=== PATIENT | male | born 1960 | race African-American/Black ===

== ENCOUNTER 2017-09-17 13:43 | Emergency (ER) | payer SELFPAY ==
[~2017-09-17] VITALS: Ht 185.4 cm; Wt 77.0 kg
[2017-09-17] MEDS ORDERED: SODIUM CHLORIDE 0.9% 1,000 ML IV ONE ×2 (14:19→17:55)
[2017-09-17 16:33] LABS: CHLORIDE 111 mEq/L (98-107); HEMATOCRIT 44.3 % (42.0-52.0); HEMOGLOBIN 14.9 g/dL (14.0-18.0); MEAN CORPUSCULAR HEMOGLOBIN 29.9 pg (28.0-32.0); MEAN CORPUSCULAR VOLUME 88.8 fL (80.0-94.0); PLATELET 166 x1000/uL (130-400); RED BLOOD CELL COUNT 4.99 mill/uL (4.7-6.1)
[2017-09-17 16:40] LABS: CARBON DIOXIDE 23 mEq/L (21-32)
[2017-09-17 17:30] LABS: *AMPHETAMINES SCREEN URINE NEGATIVE (NEGATIVE); *BARBITURATES SCREEN URINE NEGATIVE (NEGATIVE); *BENZODIAZEPINES SCREEN URINE NEGATIVE (NEGATIVE); *COCAINE SCREEN URINE NEGATIVE (NEGATIVE); CANNABINOID URINE SCREEN NEGATIVE (NEGATIVE); METHADONE URINE SCREEN NEGATIVE (NEGATIVE); OPIATES URINE SCREEN NEGATIVE (NEGATIVE); PHENCYCLIDINE URINE SCREEN NEGATIVE (NEGATIVE)
[2017-09-17] MEDS ORDERED: ACETAMINOPHEN 325MG TABLET PO ONE (18:00)
[2017-09-17 23:08] VITALS: BP 122/76
== END 2017-09-17 23:13 | disposition home or self-care (01) ==
LOC: ER 13:51
DX: S60.221A Contusion of right hand, initial encounter (principal); F10.129 Alcohol abuse with intoxication, unspecified; M25.552 Pain in left hip; M25.551 Pain in right hip; F17.200 Nicotine dependence, unspecified, uncomplicated; V87.8XXA Person injured in other specified noncollision transport accidents involving motor vehicle (traffic), initial encounter; Y93.55 Activity, bike riding; Y92.89 Other specified places as the place of occurrence of the external cause; Y99.8 Other external cause status
CPT/HCPCS: 36415; 70450; 73130; 73521; 80048; 80305; 85027; 96360; 96361; 99285; G0482; J7030

== ENCOUNTER 2020-02-28 15:13 | Emergency (ER) | payer MEDICAID ==
[~2020-02-28] VITALS: Ht 182.9 cm; Wt 110.0 kg
[2020-02-28] MEDS ORDERED: SODIUM CHLORIDE 0.9% 1,000 ML IV ONE (15:28)
[2020-02-28 15:47] LABS: HEMOGLOBIN. 15.3 g/dL (14.0-18.0); MEAN CORPUSCULAR VOLUME 91.4 fL (80.0-94.0); MEAN PLATELET VOLUME 8.6 fl (7.4-10.4); PLATELET 99 x1000/uL (130-400); RED BLOOD CELL COUNT 4.92 mill/uL (4.7-6.1); RED CELL DISTRIBUTION WIDTH 15.1 % (11.6-14.6)
[2020-02-28 15:53] LABS: CHLORIDE 107 mEq/L (98-107)
[2020-02-28 15:54] LABS: INR 1.2; PROTHROMBIN TIME 12.8 sec (9.6-11.0)
[2020-02-28 15:57] LABS: ETHANOL BLOOD 157 mg/dL
[2020-02-28 16:15] LABS: PLATELET ESTIMATE DECREASED
[2020-02-28] MEDS ORDERED: POTASSIUM CHLORIDE 20MEQ TABLET SR PO ONE (16:30)
[2020-02-28 16:50] VITALS: BP 122/75
== END 2020-02-28 16:51 | disposition home or self-care (01) ==
LOC: ER 15:13
DX: R53.1 Weakness (principal); E87.6 Hypokalemia; Z59.0 Homelessness
CPT/HCPCS: 36415; 80053; 80320; 85025; 85610; 93005; 99284; J7030; G0480

== ENCOUNTER 2020-11-29 13:37 | Emergency (ER) | payer OTHER ==
[~2020-11-29] VITALS: Ht 185.4 cm; Wt 75.0 kg
[2020-11-29] MEDS ORDERED: ACETAMINOPHEN 325MG TABLET PO ONE (14:45)
[2020-11-29] MEDS ORDERED: IBUP-2028 MT (16:18)
[2020-11-29 16:31] VITALS: BP 122/77
== END 2020-11-29 16:33 | disposition home or self-care (01) ==
LOC: ER 13:37
DX: S00.83XA Contusion of other part of head, initial encounter (principal); S50.811A Abrasion of right forearm, initial encounter; F10.129 Alcohol abuse with intoxication, unspecified; Y90.9 Presence of alcohol in blood, level not specified; Y08.89XA Assault by other specified means, initial encounter; Y93.89 Activity, other specified; R03.0 Elevated blood-pressure reading, without diagnosis of hypertension; Y92.89 Other specified places as the place of occurrence of the external cause
CPT/HCPCS: 70486; 73090; 93005; 99285

== ENCOUNTER 2022-08-14 18:30 | Emergency (ER) | payer MEDICAID, OTHER ==
[~2022-08-14] VITALS: Ht 182.9 cm; Wt 70.0 kg
[~2022-08-14 18:30] MED LIST: IBUP-2028 MT
[2022-08-14 18:38] VITALS: BP 98/56
== END 2022-08-14 22:26 | disposition left against medical advice (07) ==
LOC: ER 19:30
DX: K29.21 Alcoholic gastritis with bleeding (principal); I95.9 Hypotension, unspecified; R00.0 Tachycardia, unspecified; F10.20 Alcohol dependence, uncomplicated; K70.9 Alcoholic liver disease, unspecified; Y90.9 Presence of alcohol in blood, level not specified
CPT/HCPCS: 99283

== ENCOUNTER 2022-08-14 23:20 | Inpatient (IN) | payer OTHER, MEDICAID ==
[~2022-08-14] VITALS: Ht 182.9 cm; Wt 74.4 kg
[2022-08-14] MEDS ORDERED: PANTOPRAZOLE SODIUM 40 MG/VIAL IV STA (23:39)
[2022-08-14] MEDS ORDERED: ONDANSETRON HCL 4MG/2ML INJ IV STA (23:39)
[2022-08-14] MEDS ORDERED: SODIUM CHLORIDE 0.9% 1,000 ML IV ONE (23:45)
[2022-08-15 00:29] LABS: BASOPHILS % 0.1 % (0.0-2.0); EOSINOPHILS % 0.1 % (0.0-5.0); HEMATOCRIT. 37.3 % (42.0-52.0); HEMOGLOBIN. 11.6 g/dL (14.0-18.0); LYMPHOCYTES % 13.2 % (20.0-50.0); MEAN CORPUSCULAR HEMOGLOBIN 31.1 pg (28.0-32.0); MEAN CORPUSCULAR VOLUME 99.7 fL (80.0-94.0); MONOCYTES % 9.8 % (2.0-8.0); NEUTROPHILS % 76.8 % (40.0-76.0); PLATELET 173 x1000/uL (130-400); RED BLOOD CELL COUNT 3.74 mill/uL (4.7-6.1); RED CELL DISTRIBUTION WIDTH 14.7 % (11.6-14.6)
[2022-08-15 00:38] LABS: CHLORIDE 102 mEq/L (98-107)
[2022-08-15 00:47] LABS: ETHANOL BLOOD < 10 mg/dL
[2022-08-15 02:00] LABS: INR 1.5; PROTHROMBIN TIME 15.3 sec (9.6-11.0)
[2022-08-15 04:36] LABS: CLARITY URINE CLEAR (CLEAR); COLOR URINE YELLOW (YELLOW); KETONES URINE NEGATIVE (NEGATIVE); LEUKOCYTE ESTERASE URINE NEGATIVE (NEGATIVE); NITRITE URINE NEGATIVE (NEGATIVE); OCCULT BLOOD URINE 3+ (NEGATIVE); PH URINE 5.5 (4.5-8.0); PROTEIN URINE NEGATIVE (NEGATIVE); SPECIFIC GRAVITY URINE 1.019 (1.005-1.030)
[2022-08-15 05:25] LABS: *AMPHETAMINES SCREEN URINE NEGATIVE (NEGATIVE); *BARBITURATES SCREEN URINE NEGATIVE (NEGATIVE); *BENZODIAZEPINES SCREEN URINE NEGATIVE (NEGATIVE); *COCAINE SCREEN URINE NEGATIVE (NEGATIVE); CANNABINOID URINE SCREEN NEGATIVE (NEGATIVE); METHADONE URINE SCREEN NEGATIVE (NEGATIVE); OPIATES URINE SCREEN NEGATIVE (NEGATIVE); PHENCYCLIDINE URINE SCREEN NEGATIVE (NEGATIVE)
[2022-08-15] MEDS ORDERED: ACETAMINOPHEN 325MG TABLET PO PRN (09:45)
[2022-08-15] MEDS ORDERED: ONDANSETRON HCL 4MG/2ML INJ IV PRN (09:45)
[2022-08-15] MEDS ORDERED: POTASSIUM CHLORIDE 20MEQ TABLET SR PO NR (09:45)
[2022-08-15] MEDS: DEXT 5%/0.45% NACL 1000ML 1,000 ML IV SCH ×2 (10:05→23:20)
[2022-08-15] MEDS: PANTOPRAZOLE SODIUM 40 MG/VIAL IV SCH ×2 (10:06→20:23)
[2022-08-15 10:50] VITALS: BP 105/72
[2022-08-15 11:14] VITALS: BP 105/72
[2022-08-15 12:00] VITALS: BP 96/48
[2022-08-15 16:00] VITALS: BP 106/66
[2022-08-15] MEDS ORDERED: OCTREOTIDE 1,000 MCG in SODIUM CHLORIDE 0.9% 98 ML IV ONE (18:30)
[2022-08-15 20:00] VITALS: BP 116/66
[2022-08-15 21:51] LABS: BASOPHILS % 0.3 % (0.0-2.0); EOSINOPHILS % 0.5 % (0.0-5.0); HEMOGLOBIN. 9.8 g/dL (14.0-18.0); LYMPHOCYTES % 27.5 % (20.0-50.0); MEAN CORPUSCULAR VOLUME 91.9 fL (80.0-94.0); MEAN PLATELET VOLUME 9.8 fl (7.4-10.4); MONOCYTES % 10.1 % (2.0-8.0); NEUTROPHILS % 61.6 % (40.0-76.0); PLATELET 82 x1000/uL (130-400); RED BLOOD CELL COUNT 3.15 mill/uL (4.7-6.1); RED CELL DISTRIBUTION WIDTH 15.4 % (11.6-14.6)
[2022-08-15 22:11] LABS: CHLORIDE 111 mEq/L (98-107)
[2022-08-16] VITALS (7 sets, daily range): BP systolic 111–125; BP diastolic 68–80
[2022-08-16] MEDS: DEXT 5%/0.45% NACL 1000ML 1,000 ML IV SCH (05:13)
[2022-08-16 07:31] LABS: BASOPHILS % 0.6 % (0.0-2.0); EOSINOPHILS % 0.5 % (0.0-5.0); HEMATOCRIT. 29.7 % (42.0-52.0); LYMPHOCYTES % 29.4 % (20.0-50.0); MEAN CORPUSCULAR VOLUME 91.7 fL (80.0-94.0); MEAN PLATELET VOLUME 9.6 fl (7.4-10.4); MONOCYTES % 9.7 % (2.0-8.0); NEUTROPHILS % 59.8 % (40.0-76.0); PLATELET 78 x1000/uL (130-400); RED BLOOD CELL COUNT 3.24 mill/uL (4.7-6.1); RED CELL DISTRIBUTION WIDTH 15.2 % (11.6-14.6)
[2022-08-16 07:45] LABS: INR 1.3; PROTHROMBIN TIME 13.5 sec (9.6-11.0)
[2022-08-16 08:59] LABS: CHLORIDE 112 mEq/L (98-107)
[2022-08-16] MEDS: PANTOPRAZOLE SODIUM 40 MG/VIAL IV SCH ×2 (09:06→20:49)
[2022-08-16 09:13] LABS: TOTAL IRON BINDING CAPACITY 220 ug/dL (250-450)
[2022-08-16 10:36] LABS: VITAMIN B12 SERUM 440 pg/mL (211-911)
[2022-08-16] MEDS ORDERED: PROPOFOL 200MG/20ML VIAL IV ONE (11:43)
[2022-08-16] MEDS ORDERED: EPHEDRINE SULFATE 50MG/ML VIAL ONE (11:43)
[2022-08-16] MEDS ORDERED: LIDOCAINE HCL 1% 20ML VIAL (Pyxis) INJ ONE (11:43)
[2022-08-16] MEDS ORDERED: PHENYLEPHRINE HCL 10 MG/ML 1ML (IV VIAL) IV ONE (11:44)
[2022-08-16] MEDS ORDERED: MIDAZOLAM HCL 2 MG/2 ML VIAL ONE (11:48)
[2022-08-16 14:41] LABS: FERRITIN 175 ng/mL (22-322)
[2022-08-16 14:52] LABS: HEPATITIS B SURFACE ANTIGEN NEGATIVE
[2022-08-17] VITALS: BP 124/82
[2022-08-17] MEDS: DEXT 5%/0.45% NACL 1000ML 1,000 ML IV SCH (02:00)
[2022-08-17 04:00] VITALS: BP 123/78
[2022-08-17 08:00] VITALS: BP 103/66
[2022-08-17 08:28] LABS: BASOPHILS % 0.4 % (0.0-2.0); EOSINOPHILS % 0.4 % (0.0-5.0); HEMATOCRIT. 29.3 % (42.0-52.0); HEMOGLOBIN. 9.9 g/dL (14.0-18.0); LYMPHOCYTES % 19.2 % (20.0-50.0); MEAN CORPUSCULAR HEMOGLOBIN 31.2 pg (28.0-32.0); MEAN CORPUSCULAR VOLUME 92.2 fL (80.0-94.0); MEAN PLATELET VOLUME 9.4 fl (7.4-10.4); MONOCYTES % 8.9 % (2.0-8.0); NEUTROPHILS % 71.1 % (40.0-76.0); PLATELET 81 x1000/uL (130-400); RED BLOOD CELL COUNT 3.18 mill/uL (4.7-6.1); RED CELL DISTRIBUTION WIDTH 15.1 % (11.6-14.6)
[2022-08-17] MEDS: PANTOPRAZOLE SODIUM 40 MG/VIAL IV SCH (08:51)
[2022-08-17] MEDS ORDERED: [UNRECOGNIZED DRUG - OTHER] PO SCH (09:00)
[2022-08-17 09:03] LABS: CHLORIDE 111 mEq/L (98-107)
[2022-08-17] MEDS ORDERED: COR3 MT (10:31)
[2022-08-17] MEDS ORDERED: PANT40TA51 MT (10:31)
[2022-08-17 11:02] VITALS: BP 106/66
[2022-08-17 12:00] VITALS: BP 126/74
== END 2022-08-17 16:02 | disposition home or self-care (01) | DRG 432 ==
LOC: ER 23:25 → EDBEDREQSVC 08-15 01:18 → EDBEDREQTM 08-15 01:18 → EDBEDREQ 08-15 01:18 → EDBEDREQSVC 08-15 09:45 → ENRESERV 08-15 10:09 → 6WST 08-15 12:05
PROVIDERS: ADMIT Internal Medicine; ATTEND Internal Medicine
PROC: 30233K1 Transfusion of Nonautologous Frozen Plasma into Peripheral Vein, Percutaneous Approach (ICD-10-PCS; 2022-08-15)
PROC: 30233N1 Transfusion of Nonautologous Red Blood Cells into Peripheral Vein, Percutaneous Approach (ICD-10-PCS; 2022-08-15)
PROC: 0DB78ZX Excision of Stomach, Pylorus, Via Natural or Artificial Opening Endoscopic, Diagnostic (ICD-10-PCS; principal; 2022-08-16)
DX: K74.60 Unspecified cirrhosis of liver (principal); E43 Unspecified severe protein-calorie malnutrition; R57.8 Other shock; I85.11 Secondary esophageal varices with bleeding; D68.9 Coagulation defect, unspecified; K76.6 Portal hypertension; D64.9 Anemia, unspecified; E87.6 Hypokalemia; D72.829 Elevated white blood cell count, unspecified; Z20.822 Contact with and (suspected) exposure to COVID-19; K31.89 Other diseases of stomach and duodenum; K80.20 Calculus of gallbladder without cholecystitis without obstruction; G62.9 Polyneuropathy, unspecified; R16.1 Splenomegaly, not elsewhere classified; F41.9 Anxiety disorder, unspecified; Z68.22 Body mass index [BMI] 22.0-22.9, adult
CPT/HCPCS: 36415; 71045; 74176; 80048; 80053; 80305; 80320; 81003; 82607; 82728; 82746; 83540; 83550; 83605; 83880; 84484; 85025; 86705; 86709; 86803; 86850; 86900; 86920; 86927; 87340; 87426; 88305; 93005; 99291; C9113; J2250; J2354; J2370; J2405; J2704; J3490; J7030; J7050; P9016; P9017; G0480

== ENCOUNTER 2025-08-09 00:58 | Inpatient (IN) | payer OTHER ==
[~2025-08-09] VITALS: Ht 177.8 cm; Wt 84.8 kg
[2025-08-09] VITALS (77 sets, daily range): BP systolic 76–141; BP diastolic 53–110; PULSE 17–81; RESP 13–24; TEMP 36–36.8; O2SAT 96–100
[~2025-08-09 00:58] MED LIST changes: +ASPI-1160 PO; +ATOR-388 MT; +BICT1TAB PO; +CHOL-36 PO; -IBUP-2028 MT; +PANT40TA51 MT
[2025-08-09] MEDS: MORPHINE SULFATE 4 MG/ML INJ (FOR IV/IM USE) IV ONE (02:15)
[2025-08-09] MEDS: ONDANSETRON HCL 4MG/2ML INJ IV ONE (02:15)
[2025-08-09] MEDS: PANTOPRAZOLE SODIUM 40 MG/VIAL IV ONE (02:15)
[2025-08-09] MEDS: SODIUM CHLORIDE 0.9% 1,000 ML IV ONE (02:15)
[2025-08-09] MEDS: CALCIUM CHLORIDE 1,000 MG in SODIUM CHLORIDE 0.9% 100 ML IV ONE (02:30)
[2025-08-09] MEDS: ETOMIDATE 2MG/ML 10ML VIAL IV ONE (02:40)
[2025-08-09] MEDS: ROCURONIUM BROMIDE 10MG/ML VIAL 5ML IV ONE (02:40)
[2025-08-09] MEDS ORDERED: FENTANYL 2500MCG/250ML PMX 250 ML IV ONE ×2 (02:45→14:45)
[2025-08-09] MEDS ORDERED: MIDAZOLAM 100MG/100ML PMX 100 ML IV PRN (02:45)
[2025-08-09] MEDS: PROPOFOL 10MG/ML 100ML 100 ML IV SCH (03:00)
[2025-08-09] MEDS ORDERED: MIDAZOLAM 100MG/100ML PMX 100 ML IV SCH (03:00)
[2025-08-09] MEDS ORDERED: OCTREOTIDE 1,000 MCG in SODIUM CHLORIDE 0.9% 98 ML IV ONE (03:00)
[2025-08-09] MEDS ORDERED: FENTANYL 2500MCG/250ML PMX 250 ML IV SCH (03:00)
[2025-08-09] MEDS: PROPOFOL 10MG/ML 100ML 100 ML IV PRN ×2 (03:04→07:52)
[2025-08-09 03:17] LABS: HEMATOCRIT. 33.7 % (42.0-52.0); HEMOGLOBIN. 10.6 g/dL (14.0-18.0); RED BLOOD CELL COUNT 4.14 mill/uL (4.7-6.1); RED CELL DISTRIBUTION WIDTH 27.5 % (11.6-14.6)
[2025-08-09 03:19] LABS: CREATININE 0.8 mg/dL (0.6-1.3); INR 1.6; UREA NITROGEN BLOOD 9 mg/dL (9-23)
[2025-08-09 03:20] LABS: ETHANOL BLOOD < 10 mg/dL (<10)
[2025-08-09 03:21] LABS: ASPARTATE AMINOTRANSFERASE 97 IU/L (<34); BILIRUBIN DIRECT 0.9 mg/dL (<=3.0)
[2025-08-09 03:22] LABS: BILIRUBIN TOTAL 1.7 mg/dL (0.1-1.0); PROTEIN TOTAL 6.9 g/dL (6.0-8.3)
[2025-08-09] MEDS: MIDAZOLAM 100MG/100ML PMX 100 ML IV PRN (03:56)
[2025-08-09] MEDS: OCTREOTIDE 1,000 MCG in SODIUM CHLORIDE 0.9% 98 ML IV NR (03:56)
[2025-08-09] MEDS: OCTREOTIDE ACETATE 50 MCG/ML 1ML IV ONE (03:56)
[2025-08-09] MEDS: CEFTRIAXONE 1GM/50ML 50 ML IV ONE (04:07)
[2025-08-09] MEDS: TRANEXAMIC ACID 1000MG PREMIX 100 ML IV STA (04:11)
[2025-08-09] MEDS ORDERED: FENTANYL CITRATE/PF 2,500 MCG in SODIUM CHLORIDE 0.9% 200 ML IV PRN ×2 (04:15→06:00)
[2025-08-09] MEDS ORDERED: LORAZEPAM 2MG/ML UD SYRINGE IV PRN (04:15)
[2025-08-09] MEDS ORDERED: LABETALOL 5MG/ML 4ML INJ IV PRN (04:30)
[2025-08-09 05:01] LABS: MEAN PLATELET VOLUME 9.3 fl (7.4-10.4); PLATELET 91 x1000/uL (130-400)
[2025-08-09 05:17] LABS: EOSINOPHILS % MANUAL 1.0 % (0.0-5.0); LYMPHOCYTES % MANUAL 29.0 % (20.0-50.0); MONOCYTES % MANUAL 12.0 % (2.0-8.0); NEUTROPHILS % MANUAL 58.0 % (45.0-75.0); PLATELET ESTIMATE DECREASED
[2025-08-09] MEDS ORDERED: ONDANSETRON HCL 4MG/2ML INJ IV PRN (05:30)
[2025-08-09 06:22] LABS: BG DEOXYHEMOGLOBIN 0.8 % (0.0-5.0)
[2025-08-09] MEDS: NOREPINEPHRINE 8MG/250ML PMX 250 ML IV PRN (06:47)
[2025-08-09] MEDS ORDERED: PANTOPRAZOLE 80 MG in SODIUM CHLORIDE 0.9% 100 ML IV SCH (07:00)
[2025-08-09] MEDS ORDERED: IOHEXOL-300 100 ML BOTTLE ONE (07:24)
[2025-08-09] MEDS: PANTOPRAZOLE 80 MG in SODIUM CHLORIDE 0.9% 100 ML IV SCH (08:42)
[2025-08-09] MEDS: MVI, ADULT NO.1 10 ML, THIAMINE HCL 100 MG, FOLIC ACID 1 MG in SODIUM CHLORIDE 0.9% 1,0... IV SCH (08:43)
[2025-08-09] MEDS ORDERED: MVI, ADULT NO.1 10 ML, THIAMINE HCL 100 MG, FOLIC ACID 1 MG in SODIUM CHLORIDE 0.9% 1,0... IV SCH (09:00)
[2025-08-09] MEDS ORDERED: CEFTRIAXONE 1GM/50ML 50 ML IV SCH (09:00)
[2025-08-09] MEDS ORDERED: PANTOPRAZOLE SODIUM 40 MG/VIAL IV SCH (09:00)
[2025-08-09 09:23] LABS: BG BASE EXCESS -3.9 mmol/L (-2.0-3.0); BG CARBOXYHEMOGLOBIN 1.0 % (0.5-1.5); BG DEOXYHEMOGLOBIN 0.4 % (0.0-5.0); BG FRACTION INSPIRED OXYGEN 40; BG HCO3 ACT 20.0 mmol/L (21.0-28.0); BG METHEMOGLOBIN 0.3 % (0.5-1.5); BG OXYGEN SATURATION 99.6 % (94.0-98.0); BG OXYHEMOGLOBIN 98.3 % (94.0-98.0); BG PCO2 33.1 mmHg (35.0-48.0); BG PEEP (cmH2O) 5.0 cmH2O; BG PH 7.400 (7.350-7.450); BG PO2 171.1 mmHg (83.0-108.0); BG SAMPLE SITE LEFT RADIAL; BG TIDAL VOLUME(mL) 450.0 mL; BG TOTAL HEMOGLOBIN 12.5 g/dL (13.5-17.5); BG TOTAL RESPIRATORY RATE 17 b/min; BG VENT RATE 16.0 set
[2025-08-09 10:18] LABS: BASOPHILS % 0.9 % (0.0-2.0); EOSINOPHILS % 0.3 % (0.0-5.0); HEMATOCRIT. 36.2 % (42.0-52.0); HEMOGLOBIN. 12.4 g/dL (14.0-18.0); LYMPHOCYTES % 19.2 % (20.0-50.0); MONOCYTES % 12.7 % (2.0-8.0); NEUTROPHILS % 66.9 % (40.0-76.0); RED BLOOD CELL COUNT 4.23 mill/uL (4.7-6.1); RED CELL DISTRIBUTION WIDTH 24.6 % (11.6-14.6)
[2025-08-09 10:43] LABS: CREATININE 0.8 mg/dL (0.6-1.3); UREA NITROGEN BLOOD 10 mg/dL (9-23)
[2025-08-09 10:45] LABS: ASPARTATE AMINOTRANSFERASE 87 IU/L (<34); BILIRUBIN TOTAL 2.5 mg/dL (0.1-1.0); PROTEIN TOTAL 6.1 g/dL (6.0-8.3)
[2025-08-09 11:44] LABS: BG VENT MODE VENT - A/C
[2025-08-09 12:58] LABS: PLATELET 102 x1000/uL (130-400); RED BLOOD CELL COUNT 5.08 mill/uL (4.7-6.1); RED CELL DISTRIBUTION WIDTH 24.7 % (11.6-14.6)
[2025-08-09] MEDS: SODIUM BICARBONATE 8.4% 50MEQ/50ML SYR IV NR (13:16)
[2025-08-09] MEDS: CALCIUM GLUCONATE 1GM PREMIX 50 ML IV NR (13:17)
[2025-08-09] MEDS: DEXTROSE 50% WATER 50ML SYRINGE IV NR (13:17)
[2025-08-09] MEDS: INSULIN REGULAR (HUMULIN R) 1000UNITS/10ML VIAL IV NR (13:18)
[2025-08-09 13:58] LABS: PLATELET 104 x1000/uL (130-400)
[2025-08-09] MEDS ORDERED: INSULIN REGULAR (HUMULIN R) 1000UNITS/10ML VIAL IV SCH (15:00)
[2025-08-09] MEDS ORDERED: ALBUTEROL (0.5%) 2.5MG/0.5ML NEB HHN SCH (15:00)
[2025-08-09] MEDS ORDERED: DEXTROSE 50% WATER 50ML SYRINGE IV SCH (15:00)
[2025-08-09] MEDS: LACTULOSE 20G/30ML UDC PO SCH (15:02)
[2025-08-09 16:00] LABS: CLARITY URINE CLEAR (CLEAR); GLUCOSE URINE TRACE (NEGATIVE); KETONES URINE NEGATIVE (NEGATIVE); LEUKOCYTE ESTERASE URINE NEGATIVE (NEGATIVE); NITRITE URINE NEGATIVE (NEGATIVE); OCCULT BLOOD URINE NEGATIVE (NEGATIVE); PH URINE 7.0 (4.5-8.0); PROTEIN URINE TRACE (NEGATIVE); SPECIFIC GRAVITY URINE 1.045 (1.005-1.030); UROBILINOGEN URINE 1.0 E.U./dL (0.2-1.0)
[2025-08-09] MEDS ORDERED: CALCIUM GLUCONATE 100MG/ML 10ML VIAL IV SCH (16:00)
[2025-08-09 16:07] LABS: *AMPHETAMINES SCREEN URINE NEGATIVE (NEGATIVE); *BARBITURATES SCREEN URINE NEGATIVE (NEGATIVE); *BENZODIAZEPINES SCREEN URINE PRESUMPTIVE POSITIVE (NEGATIVE); *COCAINE SCREEN URINE NEGATIVE (NEGATIVE); CANNABINOID URINE SCREEN NEGATIVE (NEGATIVE); ECSTASY MDMA SCREEN URINE NEGATIVE (NEGATIVE); METHADONE URINE SCREEN NEGATIVE (NEGATIVE); OPIATES URINE SCREEN NEGATIVE (NEGATIVE); PHENCYCLIDINE URINE SCREEN NEGATIVE (NEGATIVE)
[2025-08-09 17:02] LABS: COLOR URINE YELLOW (YELLOW)
[2025-08-09 17:05] LABS: BACTERIA URINE NONE SEEN; RBC URINE NONE SEEN /hpf (0-2); SQUAMOUS EPITHELIAL CELL URINE RARE /lpf (RARE/1+); WBC URINE NONE SEEN /hpf (0-2)
[2025-08-09] MEDS: PANTOPRAZOLE SODIUM 40 MG/VIAL IV SCH (17:20)
[2025-08-09 17:56] LABS: PLATELET 102 x1000/uL (130-400); RED BLOOD CELL COUNT 5.89 mill/uL (4.7-6.1); RED CELL DISTRIBUTION WIDTH 24.5 % (11.6-14.6)
[2025-08-09] MEDS: SUCRALFATE 1G TABLET PO SCH (18:40)
[2025-08-09] MEDS: RIFAXIMIN 550 MG TABLET PO SCH (20:45)
[2025-08-09] MEDS ORDERED: OCTREOTIDE 1,000 MCG in SODIUM CHLORIDE 0.9% 98 ML IV SCH (23:30)
[2025-08-10] VITALS (104 sets, daily range): BP systolic 79–130; BP diastolic 60–119; PULSE 66–100; RESP 1–25; TEMP 36.5–36.8; O2SAT 96–100
[2025-08-10] MEDS: OCTREOTIDE 1,000 MCG in SODIUM CHLORIDE 0.9% 98 ML IV SCH (00:38)
[2025-08-10 02:12] LABS: RED BLOOD CELL COUNT 4.94 mill/uL (4.7-6.1); RED CELL DISTRIBUTION WIDTH 24.1 % (11.6-14.6)
[2025-08-10] MEDS: CEFTRIAXONE 1GM/50ML 50 ML IV SCH (03:37)
[2025-08-10] MEDS ORDERED: CEFTRIAXONE 1GM/50ML 50 ML IV SCH (04:00)
[2025-08-10 05:18] LABS: PLATELET 109 x1000/uL (130-400)
[2025-08-10 07:39] LABS: FOLIC ACID (FOLATE) SERUM > 20.00 ng/mL (>5.38); VITAMIN B12 SERUM 1664 pg/mL (211-911)
[2025-08-10] MEDS ORDERED: PANTOPRAZOLE SODIUM 40 MG/VIAL IV SCH (09:00)
[2025-08-10 09:41] LABS: BG BASE EXCESS 0.0 mmol/L (-2.0-3.0); BG CARBOXYHEMOGLOBIN 1.6 % (0.5-1.5); BG DEOXYHEMOGLOBIN 1.4 % (0.0-5.0); BG FRACTION INSPIRED OXYGEN 30; BG HCO3 ACT 22.1 mmol/L (21.0-28.0); BG METHEMOGLOBIN 0.3 % (0.5-1.5); BG OXYGEN SATURATION 98.6 % (94.0-98.0); BG OXYHEMOGLOBIN 96.7 % (94.0-98.0); BG PCO2 28.5 mmHg (35.0-48.0); BG PEEP (cmH2O) 5.0 cmH2O; BG PH 7.508 (7.350-7.450); BG PO2 108.0 mmHg (83.0-108.0); BG SAMPLE SITE RIGHT RADIAL; BG TIDAL VOLUME(mL) 450.0 mL; BG TOTAL HEMOGLOBIN 11.9 g/dL (13.5-17.5); BG VENT MODE VENT - AC; BG VENT RATE 16.0 set
[2025-08-10 12:19] LABS: BASOPHILS % 0.4 % (0.0-2.0); EOSINOPHILS % 0.5 % (0.0-5.0); HEMATOCRIT. 34.3 % (42.0-52.0); HEMOGLOBIN. 11.1 g/dL (14.0-18.0); LYMPHOCYTES % 14.4 % (20.0-50.0); MEAN PLATELET VOLUME 8.9 fl (7.4-10.4); MONOCYTES % 10.4 % (2.0-8.0); NEUTROPHILS % 74.3 % (40.0-76.0); PLATELET 100 x1000/uL (130-400); RED BLOOD CELL COUNT 4.15 mill/uL (4.7-6.1); RED CELL DISTRIBUTION WIDTH 24.7 % (11.6-14.6)
[2025-08-10 12:20] LABS: ADD RBC MORPHOLOGY NO
[2025-08-10 12:29] LABS: INR 1.4
[2025-08-10 12:33] LABS: CREATININE 0.8 mg/dL (0.6-1.3); UREA NITROGEN BLOOD 11 mg/dL (9-23)
[2025-08-10 12:35] LABS: ASPARTATE AMINOTRANSFERASE 92 IU/L (<34); BILIRUBIN DIRECT 1.5 mg/dL (<=3.0); BILIRUBIN TOTAL 2.3 mg/dL (0.1-1.0)
[2025-08-10 12:36] LABS: PROTEIN TOTAL 6.0 g/dL (6.0-8.3)
[2025-08-10] MEDS: LACTULOSE 20G/30ML UDC PO SCH (13:45)
[2025-08-10] MEDS: PROPOFOL 10MG/ML 100ML 100 ML IV PRN (14:01)
[2025-08-11] VITALS (73 sets, daily range): BP systolic 88–136; BP diastolic 59–95; PULSE 61–82; RESP 9–29; TEMP 36.4–36.9; O2SAT 95–100
[2025-08-11] MEDS: CEFTRIAXONE 1GM/50ML 50 ML IV SCH (00:12)
[2025-08-11 06:10] LABS: BASOPHILS % 0.5 % (0.0-2.0); EOSINOPHILS % 0.5 % (0.0-5.0); HEMATOCRIT. 34.2 % (42.0-52.0); HEMOGLOBIN. 10.8 g/dL (14.0-18.0); LYMPHOCYTES % 15.9 % (20.0-50.0); MEAN PLATELET VOLUME 8.9 fl (7.4-10.4); MONOCYTES % 14.9 % (2.0-8.0); NEUTROPHILS % 68.2 % (40.0-76.0); PLATELET 98 x1000/uL (130-400); RED BLOOD CELL COUNT 4.09 mill/uL (4.7-6.1); RED CELL DISTRIBUTION WIDTH 25.1 % (11.6-14.6)
[2025-08-11 06:23] LABS: TRIGLYCERIDE 122 mg/dL (0-150)
[2025-08-11 06:24] LABS: UREA NITROGEN BLOOD 12 mg/dL (9-23)
[2025-08-11 06:25] LABS: CREATININE 1.0 mg/dL (0.6-1.3)
[2025-08-11 06:26] LABS: ASPARTATE AMINOTRANSFERASE 101 IU/L (<34)
[2025-08-11 06:27] LABS: BILIRUBIN DIRECT 1.2 mg/dL (<=3.0); BILIRUBIN TOTAL 1.9 mg/dL (0.1-1.0); PHOSPHORUS 3.0 mg/dL (2.5-4.9); PROTEIN TOTAL 6.7 g/dL (6.0-8.3)
[2025-08-11 09:43] LABS: BG BASE EXCESS -1.6 mmol/L (-2.0-3.0); BG CARBOXYHEMOGLOBIN 1.4 % (0.5-1.5); BG DEOXYHEMOGLOBIN 3.7 % (0.0-5.0); BG FLOW(L/min) 5.00 L/min; BG FRACTION INSPIRED OXYGEN 30; BG HCO3 ACT 20.9 mmol/L (21.0-28.0); BG METHEMOGLOBIN 0.3 % (0.5-1.5); BG OXYGEN SATURATION 96.2 % (94.0-98.0); BG OXYHEMOGLOBIN 94.6 % (94.0-98.0); BG PCO2 28.9 mmHg (35.0-48.0); BG PH 7.478 (7.350-7.450); BG PO2 81.7 mmHg (83.0-108.0); BG SAMPLE SITE RIGHT RADIAL; BG TIDAL VOLUME(mL) 450.0 mL; BG TOTAL HEMOGLOBIN 11.7 g/dL (13.5-17.5); BG VENT MODE VENT - AC; BG VENT RATE 12.0 set
[2025-08-11] MEDS: MAGNESIUM 1 G PREMIX 100 ML IV SCH (10:16)
[2025-08-11] MEDS: PROPOFOL 10MG/ML 100ML 100 ML IV PRN (11:31)
[2025-08-11] MEDS: DEXTROSE 5% WATER 1,000 ML IV SCH (17:44)
[2025-08-12] VITALS (150 sets, daily range): BP systolic 74–130; BP diastolic 41–99; PULSE 49–81; RESP 10–26; TEMP 36.7–37.1; O2SAT 89–100
[2025-08-12] MEDS ORDERED: ATROPINE SULFATE 1MG/10ML SYR IV PRN (01:30)
[2025-08-12 06:16] LABS: BASOPHILS % 0.5 % (0.0-2.0); EOSINOPHILS % 1.5 % (0.0-5.0); HEMATOCRIT. 29.3 % (42.0-52.0); HEMOGLOBIN. 9.5 g/dL (14.0-18.0); LYMPHOCYTES % 18.1 % (20.0-50.0); MEAN PLATELET VOLUME 9.1 fl (7.4-10.4); MONOCYTES % 13.6 % (2.0-8.0); NEUTROPHILS % 66.3 % (40.0-76.0); PLATELET 76 x1000/uL (130-400); RED BLOOD CELL COUNT 3.47 mill/uL (4.7-6.1); RED CELL DISTRIBUTION WIDTH 25.4 % (11.6-14.6)
[2025-08-12 06:32] LABS: CREATININE 0.7 mg/dL (0.6-1.3); INR 1.3; TRIGLYCERIDE 120 mg/dL (0-150); UREA NITROGEN BLOOD 10 mg/dL (9-23)
[2025-08-12 06:34] LABS: ASPARTATE AMINOTRANSFERASE 80 IU/L (<34); BILIRUBIN DIRECT 1.1 mg/dL (<=3.0); BILIRUBIN TOTAL 1.6 mg/dL (0.1-1.0); PROTEIN TOTAL 5.9 g/dL (6.0-8.3)
[2025-08-12] MEDS: KCL 20MEQ/100ML PREMIX 100 ML IV SCH (07:00)
[2025-08-12 07:06] LABS: ADD RBC MORPHOLOGY YES
[2025-08-12] MEDS ORDERED: LIDOCAINE HCL 1% 10 MG/ML 10ML VIAL ONE (07:26)
[2025-08-12 10:23] LABS: BG BASE EXCESS -0.3 mmol/L (-2.0-3.0); BG CARBOXYHEMOGLOBIN 0.9 % (0.5-1.5); BG DEOXYHEMOGLOBIN 5.0 % (0.0-5.0); BG FRACTION INSPIRED OXYGEN 30; BG HCO3 ACT 22.9 mmol/L (21.0-28.0); BG METHEMOGLOBIN 0.3 % (0.5-1.5); BG OXYGEN SATURATION 94.9 % (94.0-98.0); BG OXYHEMOGLOBIN 93.8 % (94.0-98.0); BG PCO2 32.4 mmHg (35.0-48.0); BG PEEP (cmH2O) 5.0 cmH2O; BG PH 7.467 (7.350-7.450); BG PO2 72.1 mmHg (83.0-108.0); BG SAMPLE SITE RIGHT RADIAL; BG TIDAL VOLUME(mL) 400.0 mL; BG TOTAL HEMOGLOBIN 10.3 g/dL (13.5-17.5); BG VENT MODE VENT - AC; BG VENT RATE 12.0 set
[2025-08-12] MEDS ORDERED: PROPOFOL 200MG/20ML VIAL IV ONE (11:40)
[2025-08-12] MEDS: PROPOFOL 10MG/ML 100ML 100 ML IV PRN ×2 (13:13→19:48)
[2025-08-12 13:56] LABS: PLATELET ESTIMATE DECREASED
[2025-08-12 14:51] LABS: PHOSPHORUS 2.3 mg/dL (2.5-4.9)
[2025-08-12] MEDS ORDERED: LORAZEPAM 2MG/ML UD SYRINGE IV PRN (15:00)
[2025-08-12 18:21] LABS: BG BASE EXCESS 1.0 mmol/L (-2.0-3.0); BG CARBOXYHEMOGLOBIN 0.3 % (0.5-1.5); BG DEOXYHEMOGLOBIN 5.9 % (0.0-5.0); BG FRACTION INSPIRED OXYGEN 30; BG HCO3 ACT 24.4 mmol/L (21.0-28.0); BG METHEMOGLOBIN 0.3 % (0.5-1.5); BG OXYGEN SATURATION 94.1 % (94.0-98.0); BG OXYHEMOGLOBIN 93.5 % (94.0-98.0); BG PCO2 34.1 mmHg (35.0-48.0); BG PEEP (cmH2O) 5.0 cmH2O; BG PH 7.472 (7.350-7.450); BG PO2 68.6 mmHg (83.0-108.0); BG SAMPLE SITE RIGHT RADIAL; BG TIDAL VOLUME(mL) 400.0 mL; BG TOTAL HEMOGLOBIN 10.7 g/dL (13.5-17.5); BG VENT MODE VENT - AC; BG VENT RATE 12.0 set
[2025-08-12] MEDS: DEXMEDETOMIDINE 100 ML IV PRN (21:16)
[2025-08-13] VITALS (72 sets, daily range): BP systolic 77–165; BP diastolic 45–98; PULSE 40–85; RESP 10–22; TEMP 36.7–37.1; O2SAT 94–100
[2025-08-13] MEDS: LORAZEPAM 2MG/ML UD SYRINGE IV PRN ×2 (06:10→21:23)
[2025-08-13] MEDS: SODIUM CHLORIDE 0.9% 1,000 ML IV ONE (06:12)
[2025-08-13 06:52] LABS: HEMATOCRIT. 30.8 % (42.0-52.0); HEMOGLOBIN. 9.8 g/dL (14.0-18.0); MEAN PLATELET VOLUME 9.5 fl (7.4-10.4); PLATELET 77 x1000/uL (130-400); RED BLOOD CELL COUNT 3.53 mill/uL (4.7-6.1); RED CELL DISTRIBUTION WIDTH 24.4 % (11.6-14.6)
[2025-08-13 07:04] LABS: CREATININE 0.8 mg/dL (0.6-1.3)
[2025-08-13 07:05] LABS: TRIGLYCERIDE 103 mg/dL (0-150); UREA NITROGEN BLOOD 6 mg/dL (9-23)
[2025-08-13 07:06] LABS: ASPARTATE AMINOTRANSFERASE 89 IU/L (<34)
[2025-08-13 07:07] LABS: BILIRUBIN DIRECT 1.5 mg/dL (<=3.0); BILIRUBIN TOTAL 2.3 mg/dL (0.1-1.0); PROTEIN TOTAL 6.1 g/dL (6.0-8.3)
[2025-08-13 08:08] LABS: % CD 3 POS. LYMPHOCYTES 74.5 % (57.5-86.2); % CD 4 POS. LYMPHOCYTES 46.5 % (30.8-58.5); % CD 8 POS. LYMPH 30.2 % (12.0-35.5); ABSOLUTE BASOPHILS 0.0 x10E3/uL (0.0-0.2); ABSOLUTE CD 3 1192 /uL (622-2402); ABSOLUTE CD 4 HELPER 744 /uL (359-1519); ABSOLUTE CD 8 SUPPRESSOR 483 /uL (109-897); ABSOLUTE EOSINOPHILS 0.1 x10E3/uL (0.0-0.4); ABSOLUTE LYMPHOCYTES 1.6 x10E3/uL (0.7-3.1); ABSOLUTE MONOCYTES 1.1 x10E3/uL (0.1-0.9); ABSOLUTE NEUTROPHILS 5.1 x10E3/uL (1.4-7.0); BASOPHILS 1 % (Not Estab.); EOSINOPHILS 1 % (Not Estab.); HEMATOLOGY COMMENT Note: (.); IMMATURE GRANULOCYTES 0 % (Not Estab.); IMMATURE GRANULOCYTES ABSOLUTE 0.0 x10E3/uL (0.0-0.1); LYMPHOCYTES 20 % (Not Estab.); MEAN CORPUSCULAR HGB CONC. 31.3 g/dL (31.5-35.7); MONOCYTES 14 % (Not Estab.); NEUTROPHILS 64 % (Not Estab.); PLATELETS 91 x10E3/uL (150-450); RBC 3.52 x10E6/uL (4.14-5.80); RED CELL DISTRIBUTION WIDTH 19.9 % (11.6-15.4); WBC 8.0 x10E3/uL (3.4-10.8)
[2025-08-13 08:08] LABS: HIV 1 ABS Reactive (Non Reactive); HIV 2 ABS Non Reactive (Non Reactive); HIV SCREEN 4G Preliminary Reactive (Non Reactive)
[2025-08-13 08:59] LABS: BG BASE EXCESS -2.4 mmol/L (-2.0-3.0); BG CARBOXYHEMOGLOBIN 0.8 % (0.5-1.5); BG DEOXYHEMOGLOBIN 1.5 % (0.0-5.0); BG FRACTION INSPIRED OXYGEN 30; BG HCO3 ACT 21.3 mmol/L (21.0-28.0); BG METHEMOGLOBIN 0.3 % (0.5-1.5); BG OXYGEN SATURATION 98.5 % (94.0-98.0); BG OXYHEMOGLOBIN 97.4 % (94.0-98.0); BG PCO2 33.0 mmHg (35.0-48.0); BG PEEP (cmH2O) 5.0 cmH2O; BG PH 7.428 (7.350-7.450); BG PO2 116.9 mmHg (83.0-108.0); BG SAMPLE SITE RIGHT RADIAL; BG TIDAL VOLUME(mL) 400.0 mL; BG TOTAL HEMOGLOBIN 10.8 g/dL (13.5-17.5); BG TOTAL RESPIRATORY RATE 16 b/min; BG VENT MODE VENT - AC; BG VENT RATE 12.0 set
[2025-08-13 10:31] LABS: BG BASE EXCESS -1.0 mmol/L (-2.0-3.0); BG CARBOXYHEMOGLOBIN 1.0 % (0.5-1.5); BG DEOXYHEMOGLOBIN 2.7 % (0.0-5.0); BG FRACTION INSPIRED OXYGEN 30; BG HCO3 ACT 22.1 mmol/L (21.0-28.0); BG METHEMOGLOBIN 0.3 % (0.5-1.5); BG OXYGEN SATURATION 97.3 % (94.0-98.0); BG OXYHEMOGLOBIN 96.0 % (94.0-98.0); BG PCO2 31.3 mmHg (35.0-48.0); BG PEEP (cmH2O) 5.0 cmH2O; BG PH 7.466 (7.350-7.450); BG PO2 92.4 mmHg (83.0-108.0); BG SAMPLE SITE RIGHT RADIAL; BG TOTAL HEMOGLOBIN 11.2 g/dL (13.5-17.5); BG VENT MODE VENT - CPAP
[2025-08-13] MEDS: PANTOPRAZOLE SODIUM 40 MG/VIAL IV SCH (10:32)
[2025-08-13] MEDS: KCL 20MEQ/100ML PREMIX 100 ML IV NR (11:04)
[2025-08-13] MEDS: POTASSIUM CHLORIDE 20MEQ TABLET SR PO SCH (11:04)
[2025-08-13] MEDS ORDERED: NON FORMULARY MED XX SCH (18:00)
[2025-08-13] MEDS ORDERED: LACTULOSE ENEMA 1,000ML BOTTLE PR PRN (18:15)
[2025-08-13 20:50] LABS: EOSINOPHILS % MANUAL 1.0 % (0.0-5.0); LYMPHOCYTES % MANUAL 16.0 % (20.0-50.0); MONOCYTES % MANUAL 19.0 % (2.0-8.0); NEUTROPHILS % MANUAL 64.0 % (45.0-75.0); PLATELET ESTIMATE DECREASED
[2025-08-14 00:05] VITALS: BP 117/71; PULSE 63; RESP 16; TEMP 37.2; O2SAT 97
[2025-08-14 05:48] VITALS: BP 109/95; PULSE 72; RESP 15; TEMP 36.8; O2SAT 96
[2025-08-14 07:08] LABS: PLATELET 69 x1000/uL (130-400); RED BLOOD CELL COUNT 3.61 mill/uL (4.7-6.1); RED CELL DISTRIBUTION WIDTH 23.5 % (11.6-14.6)
[2025-08-14 08:00] VITALS: BP 112/63; PULSE 76; RESP 18; TEMP 36.9; O2SAT 98
[2025-08-14 09:45] LABS: CREATININE 0.8 mg/dL (0.6-1.3); TRIGLYCERIDE 102 mg/dL (0-150); UREA NITROGEN BLOOD 10 mg/dL (9-23)
[2025-08-14 09:47] LABS: PHOSPHORUS 1.7 mg/dL (2.5-4.9)
[2025-08-14] MEDS: ACETAMINOPHEN 650MG/20.3ML UDC NG PRN (10:31)
[2025-08-14 12:00] VITALS: BP 99/57; PULSE 75; RESP 20; TEMP 36.7; O2SAT 96
[2025-08-14 16:00] VITALS: BP 107/96; PULSE 67; RESP 18; TEMP 36.5; O2SAT 98
[2025-08-14] MEDS ORDERED: CYAN-50 PO (18:12)
[2025-08-14] MEDS ORDERED: CARV12.545 MT (18:12)
[2025-08-14] MEDS: MAGNESIUM 2 G PREMIX 50 ML IV SCH (18:30)
[2025-08-14] MEDS: SODIUM CHLORIDE 0.9% 1,000 ML IV ONE (18:30)
[2025-08-14 20:00] VITALS: BP 124/79; PULSE 71; RESP 20; TEMP 36.8; O2SAT 98
[2025-08-14] MEDS: ZOLPIDEM TARTRATE 5MG TABLET PO PRN (21:50)
[2025-08-14] MEDS: POTASSIUM PHOSPHATE 20 MMOL in DEXT 5% WATER 243.3333 ML IV SCH (21:50)
[2025-08-14] MEDS: BIKTARVY 50-200-25MG TABLET PO SCH (21:58)
[2025-08-15] VITALS: BP 116/61; PULSE 58; RESP 18; TEMP 36.6; O2SAT 98
[2025-08-15 04:00] VITALS: BP 132/87; PULSE 60; RESP 16; TEMP 36.8; O2SAT 96
[2025-08-15 08:00] VITALS: BP 145/90; PULSE 65; RESP 19; TEMP 36.7; O2SAT 97
[2025-08-15 08:18] LABS: PLATELET 69 x1000/uL (130-400); RED BLOOD CELL COUNT 3.54 mill/uL (4.7-6.1); RED CELL DISTRIBUTION WIDTH 22.9 % (11.6-14.6)
[2025-08-15 08:38] LABS: CREATININE 0.7 mg/dL (0.6-1.3); UREA NITROGEN BLOOD 6 mg/dL (9-23)
[2025-08-15 08:40] LABS: PHOSPHORUS 2.6 mg/dL (2.5-4.9)
[2025-08-15] MEDS: POTASSIUM CHLORIDE 20MEQ TABLET SR PO NR (11:31)
[2025-08-15 12:00] VITALS: BP 115/81; PULSE 82; RESP 20; TEMP 36.8; O2SAT 95
[2025-08-15] MEDS ORDERED: SUCR1TAB MT (14:44)
[2025-08-15] MEDS ORDERED: PROT40 MT (14:44)
[2025-08-15] MEDS ORDERED: LACT-390 MT (14:44)
[2025-08-15] MEDS: DEXAMETHASONE 4MG TABLET PO NR (14:49)
[2025-08-15 14:59] VITALS: BP_SYST 140; BP_DIAS 78; BP_DIAS 92; PULSE 73; RESP 19; TEMP 98.5
[2025-08-15] MEDS ORDERED: THROAT LOZENGES-BENZOCAINE/MENTH/CETYLPYRD CL LOZENGES MM PRN (15:30)
[2025-08-15 16:00] VITALS: BP 140/98; PULSE 70; RESP 17; TEMP 36.9; O2SAT 97
[2025-08-15] MEDS: HYDRALAZINE 20MG/ML VIAL IV SCH (18:45)
== END 2025-08-15 19:35 | disposition home or self-care (01) | DRG 207 ==
LOC: ER 01:23 → CVICU 03:32 → EDBEDREQSVC 03:35 → EDBEDREQTM 03:35 → EDBEDREQ 03:35 → ENRESERV 03:44 → 3WST 08-13 22:56
PROVIDERS: ADMIT Internal Medicine; ATTEND Internal Medicine
PROC: 5A1955Z Respiratory Ventilation, Greater than 96 Consecutive Hours (ICD-10-PCS; principal; 2025-08-09)
PROC: 0BH17EZ Insertion of Endotracheal Airway into Trachea, Via Natural or Artificial Opening (ICD-10-PCS; 2025-08-09)
PROC: 30233N1 Transfusion of Nonautologous Red Blood Cells into Peripheral Vein, Percutaneous Approach (ICD-10-PCS; 2025-08-09)
PROC: 0DB78ZX Excision of Stomach, Pylorus, Via Natural or Artificial Opening Endoscopic, Diagnostic (ICD-10-PCS; 2025-08-12)
PROC: 02H633Z Insertion of Infusion Device into Right Atrium, Percutaneous Approach (ICD-10-PCS; 2025-08-12)
PROC: B548ZZA Ultrasonography of Superior Vena Cava, Guidance (ICD-10-PCS; 2025-08-12)
DX: J69.0 Pneumonitis due to inhalation of food and vomit (principal); J96.01 Acute respiratory failure with hypoxia; K29.81 Duodenitis with bleeding; R57.1 Hypovolemic shock; K29.51 Unspecified chronic gastritis with bleeding; E44.1 Mild protein-calorie malnutrition; K76.82 Hepatic encephalopathy; D68.9 Coagulation defect, unspecified; D62 Acute posthemorrhagic anemia; D69.6 Thrombocytopenia, unspecified; K76.6 Portal hypertension; I69.354 Hemiplegia and hemiparesis following cerebral infarction affecting left non-dominant side; F10.229 Alcohol dependence with intoxication, unspecified; I10 Essential (primary) hypertension; E11.65 Type 2 diabetes mellitus with hyperglycemia; K56.0 Paralytic ileus; E87.0 Hyperosmolality and hypernatremia; K74.60 Unspecified cirrhosis of liver; K31.9 Disease of stomach and duodenum, unspecified; F17.210 Nicotine dependence, cigarettes, uncomplicated; K70.9 Alcoholic liver disease, unspecified; E87.5 Hyperkalemia; R91.8 Other nonspecific abnormal finding of lung field; K80.20 Calculus of gallbladder without cholecystitis without obstruction; E87.6 Hypokalemia; F43.10 Post-traumatic stress disorder, unspecified; Z85.05 Personal history of malignant neoplasm of liver
CPT/HCPCS: 31500; 31720; 36415; 36573; 36600; 71045; 74018; 74177; 80048; 80053; 80076; 80305; 80320; 81003; 82105; 82140; 82150; 82248; 82375; 82607; 82728; 82746; 82803; 82805; 82962; 83540; 83550; 83735; 84100; 84132; 84478; 85025; 85027; 85044; 86359; 86360; 86701; 86702; 86850; 86900; 86920; 87070; 87389; 88305; 88312; 88313; 93005; 93970; 94002; 94003; 94070; 94664; 97162; 98960; 99291; A4606; C1725; J0360; J0612; J0696; J1815; J2003; J2060; J2250; J2270; J2354; J2405; J2470; J2704; J3010; J3411; J3475; J3480; J3490; J7030; J7050; J7060; J7070; J8540; P9016; Q9967; G0480